=== PATIENT | female | born 1995 | race Caucasian/White ===

== ENCOUNTER 2023-05-04 07:50 | Emergency (ER) | payer OTHER ==
--- OUTSIDE RECORDS SUMMARY | 2023-05-04 07:53 | XMS REPORT | Continuity of Care Document ---
:1995 Author Organization [facility] t Address [address] [place] [address] Care Team Providers Name Role Phone TOYA CHAPPELL Attending Clinician Unavailable Bouchra Attending Clinician Unavailable Melba Castanon Attending Clinician Unavailable Bjorn Attending Clinician Unavailable ANGEL REYNOSO Attending Clinician Unavailable Bouchra Admitting Clinician Unavailable Bjorn Admitting Clinician Unavailable Payers Payer Name Policy Type Policy Number Effective Date Expiration Date William lewis [facility] [id number] 2023 [place] 00:00[place]00 [place] [id number] [place] [facility] - [id number] [place] REPLAC[place] - HMO) Problems Condition Condition Condition Status Onset Resolution Last Treating Co mments Source Name Details Category Date Date Treatment Clinician Date Acute Acute Problem Active 2022-05 [place] upper Upper 1-30 da respirator Respirator 00:00: Ep iscop y y 00 al infection Infection Heal Outre[facility] Program Acute Acute Problem Active 2022-05 [place] urinary Urinary 1-30 da tract Tract 00:00: [facility] infection Infection 00 [facility] Program Influenza Influenza Problem Active 2022-05 [place] due to Due to 1-30 da Influenza 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 Social History Smoking Status Start Date Stop Date Source Never Smoker [facility] Outreach Program Medications Ordered Filled Start Stop Current Ordering Indication Dosage Frequency Signature Comments Components Source Medication Medication Date Date Medication? Clinician (SIG) Name Name Aplisol 5 Aplisol 5 No Aplisol 5 [place] tub. tub. 7-13 tub. da unit/0.1 mL unit/0.1 mL 14:59: unit/0.1 [facility] intradermal intradermal 58 mL a l injection injection intraderma Health solutionInj solutionInj l O utreac ect 0.1 mL ect 0.1 mL injection h by by solutionIn Program intradermal intradermal ject 0.1 route. route. mL by intraderma l route. Aplisol 5 Aplisol 5 No .1mL Aplisol 5 [place] tub. tub. tub. da unit/0.1 mL unit/0.1 mL unit/0.1 [facility] intradermal intradermal mL a l injection injection intraderma Health solution solution l Outreac Inject 0.1 Inject 0.1 injection h mL by mL by solution Program intradermal intradermal Inject 0.1 route. route. mL by intraderma l route. cholecalcif cholecalcif No cholecalci [place] nic nic ferol da (vitamin (vitamin (vitamin Epi scop D3) 1,250 D3) 1,250 D3) 1,250 al mcg (50,000 mcg (50,000 mcg H ealth unit) unit) (50,000 Outreac capsule capsule unit) h TAKE ONE TAKE ONE capsule Prog tod (1) (1) TAKE ONE CAPSULE(S) CAPSULE(S) (1) BY MOUTH BY MOUTH CAPSULE(S) ONCE A ONCE A BY MOUTH WEEK. WEEK. ONCE A WEEK. metformin metformin No metformin [place] 500 mg 500 mg 500 mg da tablet TAKE tablet TAKE tablet [facility] ONE (1) ONE (1) TAKE ONE al TABLET(S) TABLET(S) (1) Healt h BY MOUTH BY MOUTH TABLET(S) Ou treac TWICE A TWICE A BY MOUTH h DAY. DAY. TWICE A Program DAY. Macrobid Macrobid No 1capsul Q12H Macrobid [place] 100 mg 100 mg e(s) 100 mg da capsule capsule capsule [facility] p Take 1 Take 1 Take 1 al capsule capsule capsule Health every 12 every 12 every 12 Out reac hours by hours by hours by h oral route oral route oral route Program for 5 days. for 5 days. for 5 days. Tamiflu 75 Tamiflu 75 No 1capsul BID Tamiflu 75 [place] mg capsule mg capsule e(s) mg capsule da Take 1 Take 1 Take 1 [facility] capsule capsule capsule al twice a day twice a day twice a Health by oral by oral day by Outreac route for 5 route for 5 oral route h days. days. for 5 Program days. 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(s) microgram(s) [facility] Tdap Tdap Unknown Completed [facility] Vital Signs Vital Name Observation Time Observation Value Comments Source BP Diastolic 2023-04-29 00:00:00 65 mm[Hg[facility] Height 2023-04-29 00:00:00 68 [in_i] [place] [facility] Body Weight 2023-04-29 00:00:00 3313 [oz_av] [place] [facility] BMI (Body Mass 2023-04-29 00:00:00 31.5 kg/m2 [place] 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 Plan of Care Planned Activity Planned Date Details Comments Source Diagnostic Test 2023-04-29 urinalysis, dipstick [facility] homer Pending 00:00:00 [code = urinalysis, [facility] dipstick] Outreach Progra m Diagnostic Test 2023-04-29 influenza virus A + [place] Pending 00:00:00 B and SARS CoV 2 [facility] e[facility] (COVID-19) and RSV Outreach Program RNA panel, ARNOLDO+probe, respiratory specimen [code = influenza virus A + B and SARS CoV 2 (COVID-19) and RSV RNA panel, ARNOLDO+probe, respiratory specimen] Diagnostic Test 2023-04-29 rapid strep group A, [facility] homer Pending 00:00:00 throat [code = rapid [facility] strep group A, Outreach Prog tod throat] Diagnostic Test 2023-04-29 culture, urine [code Beasley homer Pending 00:00:00 = culture, urine] [facility] Outreach Progra m Future Appointment 2023-06-04 Olga Mcbride, [address]igo 10:45:00 [place] [address] Outreach Program Encounters Start End Encounter Admission Attending Care Care Encounter Source Date/Time Date/Time Type Type Clinicians Facility Department ID 2023-04-30 2023-04-30 Emergency ER TA [facility] [id number] [place] 07:10:00 10:17:00 TOYA [id number] [facility] 2023-04-30 2023-04-30 emergency [facility] [id number] 07:10:00 07:10:00 [facility] [phone] [place] [address] [id number] Ctr 5eb 2023-04-30 2023-04-30 Outpatient White_M MMG MMG [id number] [place] 00:00:00 00:00:00 [facility] 2023-04-29 2023-04-29 Alda GAYTAN [place] - [id number] [place] 00:00:00 00:00:00 Tc Rust da Donaldter, [facility] p 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 2023-03-22 2023-03-22 Outpatient White_M MMG MMG [id number] [place] 00:00:00 00:00:00 1023 [facility] 2023-03-22 2023-03-22 Outpatient White_M MMG MMG [id number] [place] 00:00:00 00:00:00 1025 [facility] 2023-03-22 2023-03-22 Outpatient White_M MMG MMG [id number] [place] 00:00:00 00:00:00 1106 [facility] 2023-03-22 2023-03-22 Outpatient White_M MMG MMG [id number] [place] 00:00:00 00:00:00 1127 [facility] 2023-03-16 2023-03-16 Emergency ER Castanon, [facility] [id number] [place] 18:29:00 21:26:00 Melba [id number] [facility] 2023-02-26 2023-02-26 Outpatient White_M MMG MMG [id number] [place] 00:00:00 00:00:00 0929 [facility] 2023-02-22 2023-02-22 Outpatient Ritter_Katlevar INHOP INHOP [id number] [place] 00:00:00 00:00:00 fabby [id number] da [facility] Program 2023-02-22 2023-02-22 Outpatient Ritter_Katlevar GAYTAN MEHOP [id number] [place] 00:00:00 00:00:00 erine [id number] da [facility] 2023-02-22 2023-02-22 Outpatient Ritter_Kath MEHOP MEHOP [id number] [place] 00:00:00 00:00:00 erine [id number] da [facility] 2022-12-22 2022-12-22 Outpatient Ritter_Kath MEHOP MEHOP [id number] [place] 00:00:00 00:00:00 erine [id number] da [facility] 2022-12-14 2022-12-14 Outpatient Ritter_Kath MEHOP MEHOP [id number] [place] 00:00:00 00:00:00 erine [id number] [facility] 2022-12-14 2022-12-14 Outpatient Ritter_Kath MEHOP MEHOP [id number] [place] 00:00:00 00:00:00 erine [id number] da [facility] 2022-12-14 2022-12-14 Alda [place]I [place] - [id number] [place] 00:00:00 00:00:00 Tc Rodriges, Zoroastrianism [facility] READING TEACHER: [address] [facility] [phone] [facility] , Ph. 2022-12-09 2022-12-09 Outpatient Ritter_Kath MEHOP MEHOP [id number] [place] 00:00:00 00:00:00 erine [id number] [facility] 2022-12-09 2022-12-09 Outpatient Ritter_Kath MEHOP MEHOP [id number] [place] 00:00:00 00:00:00 erine [id number] [facility] 2022-12-09 2022-12-09 Macey [place] - [id number] [place] 00:00:00 00:00:00 Barrera Logan READING TEACHER: 1700 [facility] Ep[facility] [phone] h , Ph. Program 2022-09-25 2022-09-25 Emergency ER ANGELES, [facility] [id number] [place] 16:20:00 20:15:00 ANGEL [id number] [facility] 2022-09-25 2022-09-25 emergency [id number] 16:20:00 20:15:00 [id number] Results Test Description Test Time Test Comments Results Result Comments Source Influenza virus A and B and SARS-CoV-2 (COVID-19) and 2022-05 18:11:30 Respiratory syncytial virus RNA panel - Respiratory system specimen by ARNOLDO with probe detection Test Item Value Reference Range Interpretation Comme nts Influenza A (test code = Influenza A) negative Influenza B (test code = Influenza B) positive RSV (test code = RSV) negative Sars Cov 2 (test code = Sars Cov 2) negative [facility] ProgramUrinalysis macro (dipstick) panel - [id number] 17:59:55 Test Item Value Reference Range Interpretation Comments Leukocytes (test code = Leukocytes) +- Nitrite (test code = Nitrite) - Urobilinogen (test code = - Urobilinogen) Protein (test code = Protein) +- pH (test code = pH) 6.0 Blood (test code = Blood) 2+ Specific Commercial Point (test code = Specific 1.025 Commercial Point) Ketone (test code = Ketone) +- Bilirubin (test code = Bilirubin) - Glucose (test code = Glucose) - Appearance (test code = Appearance) cloudy Color (test code = Color) yellow [facility] Programrapid strep group A, [id number] 17:57:58 Test Item Value Reference Range Interpretation Comments Strep (test code = Strep) negative [facility] [Diameter] --3 days post dose abel tuberculin [id number] 16:23:00 Test Item Value Reference Range Interpretation Comments Results PPD injection site right forearm (test code = Results PPD injection site) Results Date PPD Given 12/09/22@ 3:14 PM (test code = Results Date PPD Given) Results Date PPD Read (test 12/11/22 @ 2:23 PM code = Results Date PPD Read) Results Induration in MM 0 (test code = Results Induration in MM) Results Final Result of PPD negative (test code = Results Final Result of PPD) [facility]
[2023-05-04 08:41] LABS: Hematocrit 29.4 % (36.0-45.0); Lymphocytes % 28.6 % (15.3-44.8); MCV 75.6 fL (80-100); MPV 7.9 fL (7.6-11.3); Platelets 192 thou/uL (152-406); RBC Red Blood Cell Count 3.89 M/uL (3.86-4.86)
[2023-05-04 09:14] LABS: Potassium 3.5 mEq/L (3.5-5.1)
--- NOTE | 2023-05-04 10:13 | RAD REPORT ---
EXAM DESCRIPTION: US - Matter Eval Tm 1 - 05/04/2023 9:47 am CLINICAL HISTORY: VAGINAL BLEEDING COMPARISON: Transvaginal OB dated 03/06/2023; TRANSVAG OB CERVIX ASSESSMENT dated 05/04/2023 TECHNIQUE: Sonographic grayscale and color flow images of a second -trimester were obtaine d through both transvaginal and transabdominal approaches approach. FINDINGS: A single live intrauterine is identified. Cresco-rump length measures 73.2 millimeters,, and femur length measures 1.34 cm, corresponding to ges tational age of 14 weeks, 0 days. No yolk sac is visualized. Subjectively reduced amniotic fluid volume. Questionable appearance of thin linear fluid-filled channel parallel and posterior to the normal cerv ical canal. Segments of this perceived channel demonstrate venous flow on color duplex imaging. Trace fluid along the cervical canal, without significant amounts of fluid or appreciable clot material. Maternal ovaries were not visualized. No free fluid. IMPRESSION: 1. Single live intrauterine . 2. Calculated gestational age: 14 weeks, 0 days. Estimated due date by ultrasound: 11/02/2023. 3. Subjectively reduced amniotic fluid volume. Given the symptoms and this finding, close clinical fo llow-up, and consideration of evaluation for high risk , would be recommended. 4. Questionable thin linear fluid filled channel posterior and parallel to the normal cervical canal, may relate to venous spaces with slow flow versus the duplicated cervical channel in the case of a M ullerian anomaly. The findings were communicated to Dhruv Velazquez on 05/04/2023 at 10:06 hours.
--- NOTE | 2023-05-04 10:58 | EDPHYS ---
Physician Documentation [facility] Name: Melania Leigh Age: 28 yrs Sex: Female : 1995 Arrival Date: 05/04/2023 Time: 07:50 Bed 4 Private MD: ED Physician Dhruv Velazquez HPI: 05/04 09:20 This 28 yrs old Female presents to ER via Ambulatory with complaints of Vaginal rt Bleeding - Preg-14wks. 09:20 Patient is a currently 14 weeks gestation presents to the ED with vaginal rt bleeding starting on Wednesday. She reported large amount of bleeding, lower abdominal cramping with clots, reported tissue passage. Bleeding has slowed, reports of brown discharge now. No more abdominal pain states that the bleeding has stopped upon arrival to the ED. Symptoms are moderate severity, no other aggravating or elevating factors.. Historical: - Allergies: 08:02 No Known Allergies; ll1 - PMHx: 08:02 None; ll1 - PSHx: 08:02 section; ll1 - Immunization history:: Adult Immunizations up to date. - Social history:: Smoking status: Patient denies any tobacco usage or history of. - Family history:: not pertinent. ROS: 09:20 Constitutional: Negative for fever, chills, and weight loss, Cardiovascular: Negative rt for chest pain, palpitations, and edema, Respiratory: Negative for shortness of breath, cough, wheezing, and pleuritic chest pain, Abdomen/GI: Negative for abdominal pain, nausea, vomiting, diarrhea, and constipation, Skin: Negative for injury, rash, and discoloration, Neuro: Negative for headache, weakness, numbness, tingling, and seizure, Psych: Negative for depression, anxiety, suicide ideation, homicidal ideation, and hallucinations, 09:20 : Positive for vaginal bleeding, Negative for urinary symptoms, Exam: 09:20 Constitutional: This is a well developed, well nourished patient who is awake, alert, rt and in no acute distress. Head/Face: Normocephalic, atraumatic. Chest/axilla: Normal chest wall appearance and motion. Nontender with no deformity. No lesions are appreciated. Cardiovascular: Regular rate and rhythm with a normal S1 and S2. No gallops, murmurs, or rubs. Normal PMI, no JVD. No pulse deficits. Respiratory: Lungs have equal breath sounds bilaterally, clear to auscultation and percussion. No rales, rhonchi or wheezes noted. No increased work of breathing, no retractions or nasal flaring. Abdomen/GI: Soft, non-tender, with normal bowel sounds. No distension or tympany. No guarding or rebound. No evidence of tenderness throughout. Skin: Warm, dry with normal turgor. Normal color with no rashes, no lesions, and no evidence of cellulitis. MS/ Extremity: Pulses equal, no cyanosis. Neurovascular intact. Full, normal range of motion. Neuro: Awake and alert, GCS 15, oriented to person, place, time, and situation. Cranial nerves II-XII grossly intact. Motor strength 5/5 in all extremities. Sensory grossly intact. Cerebellar exam normal. Normal gait. Psych: Awake, alert, with orientation to person, place and time. Behavior, mood, and affect are within normal limits. Vital Signs: 08:02 BP 134 / 63; Pulse 84; Resp 17; Temp 97; Pulse Ox 98% ; Height 5 ft. 8 in. ; Pain 0/10; ll1 08:10 BP 107 / 51; Pulse 81; Pulse Ox 99% ; tm6 09:44 BP 111 / 70; Pulse 75; Pulse Ox 95% on R/A; tm6 10:26 BP 109 / 59; Pulse 68; Pulse Ox 100% on R/A; tm6 08:02 Pain Scale: Adult ll1 MDM: 08:05 Patient medically screened. rt 10:57 Differential diagnosis: Placenta previa, , threatened , incomplete rt . Data reviewed: vital signs, nurses notes, lab test result(s), radiologic studies. Discussion of test interpretation with radiology: I had a discussion with radiology regarding a test interpretation. Discussed ultrasound findings with radiology. Counseling: I had a detailed discussion with the patient and/or guardian regarding the historical points, exam findings, and any diagnostic results supporting the discharge/admit diagnosis, lab results, radiology results, Discussed findings of possible polyhydramnios oligohydramnios with the patient, she has an appointment on Wednesday for follow-up.. 05/04 08:21 Order name: Abo/rh Typing; Complete Time: 10:46 rt 05/04 08:21 Order name: Basic Metabolic Panel; Complete Time: 10:45 rt 12 08:21 Order name: CBC with Diff; Complete Time: 10:45 rt 05/04 08:21 Order name: Quantitative Hcg; Complete Time: 10:46 rt 05/04 09:09 Order name: Matter Eval Tm 1; Complete Time: 10:46 EDMS 05/04 09:14 Order name: TRANSVAG OB CERVIX ASSESSMENT; Complete Time: 11:13 EDMS 05/04 08:21 Order name: IV Saline Lock; Complete Time: 08:36 rt 12 08:21 Order name: Labs collected and sent; Complete Time: 08:36 rt 12 08:21 Order name: NPO; Complete Time: 08:24 rt 12 08:40 Order name: Labs - recollect needed: recollect abo/rh. you dont need to band pt.; bd Complete Time: 09:43 Administered Medications: No medications were administered Disposition Summary: 05/04/23 10:57 Discharge Ordered Notes: Location: Home rt Problem: new rt Symptoms: have improved rt Condition: Stable rt Diagnosis - Threatened rt Followup: rt - With: Private Physician - When: 2 - 3 days - Reason: Discharge Instructions: - Discharge Summary Sheet rt - Vaginal Bleeding During , First Trimester rt Forms: - Medication Reconciliation Form rt - Thank You Letter rt - Antibiotic Education rt - Prescription Opioid Use rt - Patient Portal Instructions rt - Leadership Thank You Letter rt Signatures: Dispatcher [employer] EDViviane Gasca Lynsay, RN RN ll1 Dhruv Velazquez MD MD rt Corrections: (The following items were deleted from the chart) 09: 08:22 Transvaginal Ob+US.RAD.BRZ ordered. EDMS EDMS
--- NOTE | 2023-05-04 10:58 | ER ---
Nurse's Notes [facility] Name: Melania Leigh Age: 28 yrs Sex: Female : 1995 Arrival Date: 05/04/2023 Time: 07:50 Bed 4 Private MD: Diagnosis: Threatened Presentation: 05/04 08:02 Chief complaint: Patient states: Vaginal bleeding for 2 days, heavy with clots. 14 ll1 weeks G2, P1. Coronavirus screen: Vaccine status: Patient reports receiving the 1st dose of the Covid vaccine. Client denies travel out of the [place] in the last 14 days. At this time, the client does not indicate any symptoms associated with coronavirus-19. Ebola Screen: Patient denies travel to an Ebola-affected area in the 21 days before illness onset. Initial Sepsis Screen: Does the patient meet any 2 criteria? No. Patient's initial sepsis screen is negative. Does the patient have a suspected source of infection? No. Patient's initial sepsis screen is negative. Risk Assessment: Do you want to hurt yourself or someone else? Patient reports no desire to harm self or others. Onset of symptoms was May 02, 2023. 08:02 Method Of Arrival: Ambulatory ll1 08:02 Acuity: EV 3 ll1 Triage Assessment: 08:04 General: Appears in no apparent distress. Behavior is calm, cooperative, appropriate ll1 for age. Pain: Denies pain. : Reports vaginal bleeding that is with clots, heavy flow. Historical: - Allergies: 08:02 No Known Allergies; ll1 - PMHx: 08:02 None; ll1 - PSHx: 08:02 section; ll1 - Immunization history:: Adult Immunizations up to date. - Social history:: Smoking status: Patient denies any tobacco usage or history of. - Family history:: not pertinent. Screenin:[address] [facility] ED Fall Risk Assessment (Adult) History of falling in the last 3 months, tm6 including since admission No falls in past 3 months (0 pts). Abuse screen: Denies threats or abuse. Denies injuries from another. Nutritional screening: No deficits noted. Tuberculosis screening: No symptoms or risk factors identified. Assessment: 08:10 General: Appears in no apparent distress. Behavior is calm, cooperative. Pain: tm6 Complains of pain in pelvis Quality of pain is described as crampy. Neuro: Level of Consciousness is awake, alert, obeys commands, Oriented to person, place, time, situation. Cardiovascular: Capillary refill < 3 seconds Patient's skin is warm and dry. Respiratory: Airway is patent Respiratory effort is even, unlabored, Respiratory pattern is regular, symmetrical. GI: Abdomen is round non-distended. : per report: bloody discharge. EENT: No signs and/or symptoms were reported regarding the EENT system. Derm: No signs and/or symptoms reported regarding the dermatologic system. Musculoskeletal: No signs and/or symptoms reported regarding the musculoskeletal system. 09:44 Reassessment: Patient appears in no apparent distress at this time. No changes from tm6 previously documented assessment. Patient and/or family updated on plan of care and expected duration. Pain level reassessed. Patient is alert, oriented x 3, equal unlabored respirations, skin warm/dry/pink. 10:25 Reassessment: Patient appears in no apparent distress at this time. No changes from tm6 previously documented assessment. Patient and/or family updated on plan of care and expected duration. Pain level reassessed. Patient is alert, oriented x 3, equal unlabored respirations, skin warm/dry/pink. Vital Signs: 08:02 BP 134 / 63; Pulse 84; Resp 17; Temp 97; Pulse Ox 98% ; Height 5 ft. 8 in. ; Pain 0/10; ll1 08:10 BP 107 / 51; Pulse 81; Pulse Ox 99% ; tm6 09:44 BP 111 / 70; Pulse 75; Pulse Ox 95% on R/A; tm6 10:26 BP 109 / 59; Pulse 68; Pulse Ox 100% on R/A; tm6 08:02 Pain Scale: Adult ll1 ED Course: 07:53 Patient arrived in ED. mg5 07:53 Dhruv Velazquez MD is Attending Physician. rt 07:55 Arm band placed on Patient placed in an exam room, on a stretcher. ll1 08:04 Triage completed. ll1 08:06 Jamie Hale, JOSEPH is Primary Nurse. tm6 08:14 Patient has correct armband on for positive identification. Bed in low position. Call tm6 light in reach. Side rails up X2. Provided Education on: on VS monitoring. Door closed. Noise minimized. Lights dimmed. Warm blanket given. 08:14 No provider procedures requiring assistance completed. tm6 08:36 Inserted saline lock: 20 gauge in right antecubital area, using aseptic technique. tm6 09:49 Matter Eval Tm 1 In Process Unspecified. EDMS 09:49 TRANSVAG OB CERVIX ASSESSMENT In Process Unspecified. EDMS 11:21 IV discontinued, intact, bleeding controlled, No redness/swelling at site. Pressure tm6 dressing applied. Administered Medications: No medications were administered Medication: 11:21 VIS not applicable for this client. tm6 Outcome: 10:57 Discharge ordered by . rt 11:21 Discharged to home ambulatory, tm6 11:21 Condition: stable 11:21 Discharge instructions given to patient, Instructed on discharge instructions, follow up and referral plans. Demonstrated understanding of instructions, follow-up care, 11:23 Patient left the ED. tm6 Signatures: Dispatcher [employer] Jyothi Vasquez, JOSEPH RN ll1 Dhruv Velazquez MD MD rt Ayaka Jauregui mg5 Jamie Hale RN RN tm6
--- NOTE | 2023-05-04 11:12 | RAD REPORT ---
EXAM DESCRIPTION: US - TRANSVAG OB CERVIX ASSESSMENT - 05/04/2023 9:47 am CLINICAL HISTORY: Bleeding COMPARISON: Pelvic ultrasound of the same day. TECHNIQUE: Sonographic grayscale and color flow images of a second -trimester were obtaine d through both transvaginal and transabdominal approaches approach. FINDINGS: A single live intrauterine is identified. Mcconnells-rump length measures 73.2 millimeters,, and femur length measures 1.34 cm, corresponding to ges tational age of 14 weeks, 0 days. No yolk sac is visualized. Subjectively reduced amniotic fluid volume. Questionable appearance of thin linear fluid-filled channel parallel and posterior to the normal cerv ical canal. Segments of this perceived channel demonstrate venous flow on color duplex imaging. Trace fluid along the cervical canal, without significant amounts of fluid or appreciable clot material. Maternal ovaries were not visualized. No free fluid. IMPRESSION: 1. Single live intrauterine . 2. Calculated gestational age: 14 weeks, 0 days. Estimated due date by ultrasound: 11/02/2023. 3. Subjectively reduced amniotic fluid volume. Given the symptoms and this finding, close clinical fo llow-up, and consideration of evaluation for high risk , would be recommended. 4. Questionable thin linear fluid filled channel posterior and parallel to the normal cervical canal, may relate to venous spaces with slow flow versus the duplicated cervical channel in the case of a M ullerian anomaly. The findings were communicated to Dhruv Velazquez on 05/04/2023 at 10:06 hours.
[2023-05-04 11:28] VITALS: TEMP 97
[2023-05-04 11:32] VITALS: BP 109/59; O2SAT 100
== END 2023-05-04 11:23 | disposition home or self-care (01) ==
LOC: ER 07:50
DX: O20.0 Threatened abortion (principal); Z3A.14 14 weeks gestation of pregnancy
CPT/HCPCS: 36415; 76801; 76817; 80048; 84702; 85025; 86900; 86901; 99283